=== PATIENT | female | born 1955 | race Caucasian/White ===

== ENCOUNTER 2018-10-31 16:33 | Emergency (ER) | payer MEDICAID, OTHER ==
[~2018-10-31] VITALS: Ht 154.9 cm; Wt 49.6 kg
[~2018-10-31 16:33] MED LIST: AMIT10TA25 PO; CELE200C PO; DULO30EC PO; ELA10 PO; GABA100C PO; LEVO500T6 PO; LEVO750T2 PO; METR250T2 PO; NEBI5TAB4 PO; PHEN15TA PO; POTA10TE30 PO; TRAM50TA1 PO
[2018-10-31 16:53] VITALS: BP 145/75
--- NOTE | 2018-10-31 17:01 | NUR ---
PT AMBULATED TO LOBBY AT THIS TIME, VSS
--- NOTE | 2018-10-31 17:02 | NUR ---
PATIENT AMBULATED TO ER BED 8.
--- NOTE | 2018-10-31 17:10 | NUR ---
63 Y FEMALE BIB SELF C/O LT LEG PAIN X2 DAYS. PT STATES FALLING DOWN A FLIGHT OF STAIR 2-3 YEARS AGO AND HAS HAD CHRONIC LEG PAIN, BUT PT STATES PAIN HAS BECOME WORSE OVER PAST 2 DAYS. PT REPORTS CONSTANT SHARP LEG PAIN FROM LT HEAL UP TO LT KNEE AT 9/10 THAT INCREASES WITH WALKING. -DEFORMITY, -ECCYMOSIS, -REDNESS, +CMS. VSS AT THIS TIME. AA0X4. BED IS DOWN, LOCKED, BED RAIL X 1, ERMD TO SEE PT. MEDHX:SIEZURE, HTN, HYPOKALEMIA RX:PHENOBARBITOL, POTASSIUM
--- NOTE | 2018-10-31 17:18 | NUR ---
DR BRANHAM AT BEDSIDE
[2018-10-31] MEDS ORDERED: KETOROLAC 30 MG/ML VIAL IM ONE (17:25)
[2018-10-31] MEDS ORDERED: HYDROcodone/APAP 5/325 MG 1 TAB TAB PO ONE (18:35)
[2018-10-31 18:58] VITALS: BP 138/75
--- NOTE | 2018-10-31 18:58 | NUR ---
Patient discharged with v/s stable. Written and verbal after care instructions given and explained. Patient alert, oriented and verbalized understanding of instructions. Ambulatory with steady gait. All questions addressed prior to discharge. ID band removed. Patient advised to follow up with PMD. Rx of ACETAMINOPHEN/CODEINE given. Patient educated on indication of medication including possible reaction and side effects. Opportunity to ask questions provided and answered. PT CALLED [facility] FROM [facility] AND WAITING TO BE PICKED UP
== END 2018-10-31 18:58 | disposition home or self-care (01) ==
LOC: MED 16:33
DX: M79.605 Pain in left leg (principal); G89.29 Other chronic pain; J45.909 Unspecified asthma, uncomplicated; K21.9 Gastro-esophageal reflux disease without esophagitis; I10 Essential (primary) hypertension; E07.9 Disorder of thyroid, unspecified; Z79.891 Long term (current) use of opiate analgesic; Z79.2 Long term (current) use of antibiotics; Z79.899 Other long term (current) drug therapy; Z88.6 Allergy status to analgesic agent; Z88.0 Allergy status to penicillin; Z88.5 Allergy status to narcotic agent; Z88.8 Allergy status to other drugs, medicaments and biological substances
CPT/HCPCS: 96372; 99283; J1885

== ENCOUNTER 2019-02-28 19:54 | Emergency (ER) | payer OTHER ==
[~2019-02-28] VITALS: Ht 167.6 cm; Wt 55.8 kg
[2019-02-28 20:18] VITALS: BP 148/78
[2019-02-28 21:21] LABS: BASOPHILS % (AUTO) 0.7 % (0.0-2.0); EOSINOPHILS # (AUTO) 0.2 K/uL (0-0.4); EOSINOPHILS % (AUTO) 2.6 % (0.0-4.0); HEMATOCRIT 31.8 % (36-48); HEMOGLOBIN 10.7 g/dL (12.0-16.0); LYMPHOCYTES # (AUTO) 1.4 K/uL (2.5-16.5); LYMPHOCYTES % (AUTO) 23.4 % (20.5-51.1); MEAN CORPUSCULAR HEMOGLOBIN 31 pg (27-31); MEAN CORPUSCULAR HGB CONC 34 g/dL (33-37); MEAN CORPUSCULAR VOLUME 92.7 fL (80-94); MONOCYTES # (AUTO) 0.5 K/uL (0.8-1.0); MONOCYTES % (AUTO) 7.8 % (1.7-9.3); NEUTROPHILS % (AUTO) 65.5 % (42.2-75.2); PLATELET COUNT (AUTO) 254 K/uL (140-450); RED BLOOD CELL COUNT(AUTO) 3.43 MIL/uL (4.20-5.40); WHITE BLOOD COUNT (AUTO) 6.1 K/uL (4.8-10.8)
--- NOTE | 2019-02-28 21:25 | NUR ---
Note undone in EDM - 02/28/19 at 2126 by LU 64 Y/O FEMALE C/O BILATERAL FEET SWELLING X 6 DAYS. EDEMA NOTED TO BILATERAL FEET. SEEN PCP AND WAS GIVEN WATER PILLS AND PER PT "NOT WORKING". SHE STATES THAT HER PAIN IS A 7/10 CONTINUOUS PAIN. SKIN IS MOIST. LEGS ARE EDEMATOUS AND ARE NON-PITTING BILATERALLY. ERMD MADE AWARE OF STATUS. SIDE RAILSX1 PHM; SEIZURES, HTN ALLERGIES: PCN. TYLENOL, COMPEZINE
--- NOTE | 2019-02-28 21:26 | NUR ---
64 Y/O FEMALE C/O BILATERAL FEET SWELLING X 6 DAYS. EDEMA NOTED TO BILATERAL FEET. SEEN PCP AND WAS GIVEN WATER PILLS AND PER PT "NOT WORKING". SHE STATES THAT HER PAIN IS A 7/10 CONTINUOUS PAIN. SKIN IS MOIST. LEGS AND ANKLES ARE EDEMATOUS AND ARE NON-PITTING BILATERALLY. PEDAL PULSES ARE +2. ERMD MADE AWARE OF STATUS. SIDE RAILSX1 PHM; SEIZURES, HTN ALLERGIES: PCN. TYLENOL, COMPEZINE
[2019-02-28 21:47] LABS: ANION GAP 10.5 (8-16); CARBON DIOXIDE 30.5 mmol/L (21-32); CREATININE 0.8 mg/dL (0.6-1.3)
[2019-02-28 21:52] LABS: ALBUMIN 3.6 g/dL (3.4-5.0); TOTAL BILIRUBIN 0.1 mg/dL (0.0-1.0)
--- NOTE | 2019-02-28 22:07 | NUR ---
PATIENT IS IN NO DISTRESS AND IS QUIETLY SITTING IN BED.
--- NOTE | 2019-02-28 22:08 | NUR ---
PATIENT IS SLEEPING AT THIS TIME.
--- NOTE | 2019-02-28 23:09 | NUR ---
NASRA SEVILLA AT BEDSIDE.
[2019-02-28] MEDS ORDERED: KETOROLAC 60 MG/2 ML VIAL IM ONE (23:15)
[2019-02-28 23:39] VITALS: BP 139/69
--- NOTE | 2019-02-28 23:39 | NUR ---
Patient discharged with v/s stable. Written and verbal after care instructions given and explained. Patient alert, oriented and verbalized understanding of instructions. Ambulatory with steady gait. All questions addressed prior to discharge. ID band removed. Patient advised to follow up with PMD. Rx of CIPRO, MOTRIN given. Patient educated on indication of medication including possible reaction and side effects. Opportunity to ask questions provided and answered.
== END 2019-02-28 23:39 | disposition home or self-care (01) ==
LOC: MED 19:54
DX: R60.0 Localized edema (principal); N39.0 Urinary tract infection, site not specified; J45.909 Unspecified asthma, uncomplicated; K21.9 Gastro-esophageal reflux disease without esophagitis; I10 Essential (primary) hypertension; E07.9 Disorder of thyroid, unspecified; Z90.49 Acquired absence of other specified parts of digestive tract; Z90.710 Acquired absence of both cervix and uterus; Z79.899 Other long term (current) drug therapy; Z88.0 Allergy status to penicillin; Z88.8 Allergy status to other drugs, medicaments and biological substances; Z88.6 Allergy status to analgesic agent
CPT/HCPCS: 36415; 71045; 80053; 81002; 81025; 83880; 84484; 85025; 96372; 99284; J1885

== ENCOUNTER 2020-04-18 17:19 | Emergency (ER) | payer MEDICARE, OTHER ==
[~2020-04-18] VITALS: Ht 162.6 cm; Wt 49.9 kg
[2020-04-18 17:23] VITALS: BP 157/93
--- NOTE | 2020-04-18 17:46 | NUR ---
PT BIB GRANDDAUGHTER C/O LEFT SIDED EXTREMITIES WEAKNESS, TINGLING, AND NUMBNESS SENSATIONS AND LEFT ARM/HAND PAIN 10/10 FOR ONE WEEK. STATED FALLING AND LANDING ON HER LEFT SIDE 1 MONTH AGO. PT IS AMBULATORY AND NO FACIAL DROOP OR ASYMMETRY NOTICED UPON TRIAGE. [id number]-JA-REAM-TO-FINGER TEST SLIGHT ABNORMAL ON THE LEFT HAND, LEFT HAND STRENGTH WEAKER ON GRIPPING TEST. PT HAD STROKE 10 YEARS AGO.
[2020-04-18] MEDS ORDERED: HYDROmorphone 2 MG TAB PO STA (18:05)
[2020-04-18] MEDS ORDERED: HYDROcodone/APAP 5/325 MG 1 TAB TAB PO ONE ×2 (18:05→22:40)
--- NOTE | 2020-04-18 19:02 | NUR ---
Report given to SHAHID Padilla. Transfer of care at this time
[2020-04-18 19:19] LABS: BASOPHILS % (AUTO) 0.7 % (0.0-2.0); EOSINOPHILS % (AUTO) 0.1 % (0.0-4.0); HEMATOCRIT 34.2 % (36-48); HEMOGLOBIN 11.7 g/dL (12.0-16.0); LYMPHOCYTES # (AUTO) 1.3 K/uL (2.5-16.5); LYMPHOCYTES % (AUTO) 18.5 % (20.5-51.1); MEAN CORPUSCULAR HEMOGLOBIN 31 pg (27-31); MEAN CORPUSCULAR HGB CONC 34 g/dL (33-37); MEAN CORPUSCULAR VOLUME 91.7 fL (80-94); MONOCYTES # (AUTO) 0.4 K/uL (0.8-1.0); MONOCYTES % (AUTO) 5.9 % (1.7-9.3); NEUTROPHILS # (AUTO) 5.5 K/uL (1.8-7.7); NEUTROPHILS % (AUTO) 74.8 % (42.2-75.2); PLATELET COUNT (AUTO) 247 K/uL (140-450); RED BLOOD CELL COUNT(AUTO) 3.72 MIL/uL (4.20-5.40); RED CELL DISTRIBUTION WIDTH 13.1 % (11.6-13.7); WHITE BLOOD COUNT (AUTO) 7.3 K/uL (4.8-10.8)
--- NOTE | 2020-04-18 19:22 | NUR ---
pt states still unable to provide urine.
[2020-04-18 19:28] LABS: PROTHROMBIN TIME 11.6 secs (10.8-13.4)
[2020-04-18 19:30] LABS: ANION GAP 16.9 (8-16); CARBON DIOXIDE 23.4 mmol/L (21-32); CREATININE 0.6 mg/dL (0.6-1.3); POTASSIUM 3.3 mmol/L (3.5-5.1); TOTAL BILIRUBIN 0.4 mg/dL (0.0-1.0)
--- NOTE | 2020-04-18 19:45 | NUR ---
pt being interviewed by neurologist via remote connection.
[2020-04-18] MEDS ORDERED: HYDROmorphone PFS 2 MG/ML SYR IVP ONE (20:10)
--- NOTE | 2020-04-18 20:18 | NUR ---
pt ambulated to restroom to provide urine sample.
--- NOTE | 2020-04-18 20:26 | NUR ---
CT consent signed and radiology department notified
[2020-04-18 20:39] LABS: APPEARANCE,URINE CLEAR (CLEAR); BILIRUBIN,URINE NEGATIVE (NEGATIVE); BLOOD, URINE NEGATIVE (NEGATIVE); COLOR,URINE YELLOW (YELLOW); LEUKOCYTE ESTERASE ,URINE NEGATIVE (NEGATIVE); NITRITE, URINE POSITIVE (NEGATIVE); UGLUCOSE NEGATIVE (NEGATIVE)
[2020-04-18 20:44] LABS: RBC,URINE 0-5 /HPF (0-5)
[2020-04-18] MEDS ORDERED: atenoloL 25 MG TAB PO ONE (21:05)
[2020-04-18] MEDS ORDERED: ATEN25TA7 PO (21:13)
[2020-04-18] MEDS ORDERED: KEP500 PO (21:13)
[2020-04-18] MEDS ORDERED: FAMO-90 PO (21:13)
--- NOTE | 2020-04-18 21:21 | NUR ---
Pt taken to CT via w/c.
--- NOTE | 2020-04-18 21:30 | NUR ---
pt reports 8/10 pain even after administration of medication via IV. Dr. Han notified.
--- NOTE | 2020-04-18 21:34 | NUR ---
pt returned from CT via w/c
--- NOTE | 2020-04-18 22:30 | NUR ---
splint applied by BO Wilson. Pulses palpable +2. Cap refill < 3. ROM intact.
--- NOTE | 2020-04-18 22:40 | NUR ---
pt now reports decreased pain from 8/10 to 2/10 and tolerable.
[2020-04-18 23:17] VITALS: BP 136/76
== END 2020-04-18 23:17 | disposition home or self-care (01) ==
LOC: MED 17:19
DX: S69.92XA Unspecified injury of left wrist, hand and finger(s), initial encounter (principal); R56.9 Unspecified convulsions; J45.909 Unspecified asthma, uncomplicated; K21.9 Gastro-esophageal reflux disease without esophagitis; I10 Essential (primary) hypertension; E07.9 Disorder of thyroid, unspecified; Z88.0 Allergy status to penicillin; Z88.5 Allergy status to narcotic agent; Z88.6 Allergy status to analgesic agent; Z88.8 Allergy status to other drugs, medicaments and biological substances; Z79.899 Other long term (current) drug therapy; X58.XXXA Exposure to other specified factors, initial encounter; Y93.89 Activity, other specified; Y92.89 Other specified places as the place of occurrence of the external cause; Y99.8 Other external cause status
CPT/HCPCS: 29125; 36415; 70450; 70496; 70498; 71045; 73110; 80053; 81001; 84484; 85025; 85610; 85730; 86886; 86900; 86901; 87086; 93005; 96374; 99285; J1170; Q9967

== ENCOUNTER 2020-09-19 16:14 | Emergency (ER) | payer MEDICARE, OTHER ==
[~2020-09-19] VITALS: Ht 167.6 cm; Wt 54.4 kg
[~2020-09-19 16:14] MED LIST changes: +AMIT10TA36 PO; +ATEN25TA7 PO; -ELA10 PO; +FAMO-90 PO; +KEP500 PO; +METR-520 PO; -METR250T2 PO
[2020-09-19 16:26] VITALS: BP 154/84
--- NOTE | 2020-09-19 16:31 | NUR ---
Patient ambulated to bed 8 with steady/even gait.
--- NOTE | 2020-09-19 16:35 | NUR ---
Patient ambulated to restroom for urine sample.
--- NOTE | 2020-09-19 16:46 | NUR ---
65 Y/O FEMALE BIB SELF C/O DIARHHEA X 4 DAYS WITH ABDOMINAL PAIN. INTERMITTENT RIGHT LOWER ABDOMINAL PAIN RADIATING TO RIGHT LOWER EXTREMITY. HYPERACTIVE BOWEL SOUNDS HEARD THROUGHOUT, PT STATES 6 BM TODAY. PT DENIES VOMITING/NAUSEA OR BLOOD IN STOOL. PT STATES PRESENCE OF RASH THROUGHOUT BILAT ARMS, APPARENT ANOMALIES NOTED. PT DENIES DISCOMFORT FROM SAID SKIN ANOMALIES. AO4, BREATHING EVEN AND UNLABORED, SKIN WARM AND DRY. BED IN LOWEST POSITION, LCOKED, X1 SIDERAIL UP. PMH - HTN, SEIZURES, APPENDECTOMY, HYSTERECTOMY, OVARIAN CYST ALLERGY - NSAIDs
--- NOTE | 2020-09-19 16:58 | NUR ---
ERMD AT BEDSIDE
[2020-09-19] MEDS ORDERED: NACL 0.9% 1,000 ML IV ONE (17:00)
--- NOTE | 2020-09-19 17:05 | NUR ---
BP 182/89 WITH NEW ONSET THROBBING HEADACHE. FRANKIED MADE AWARE.
[2020-09-19 17:37] LABS: APPEARANCE,URINE CLEAR (CLEAR); BILIRUBIN,URINE NEGATIVE (NEGATIVE); BLOOD, URINE TRACE-I (NEGATIVE); COLOR,URINE YELLOW (YELLOW); LEUKOCYTE ESTERASE ,URINE 2+ (NEGATIVE); NITRITE, URINE NEGATIVE (NEGATIVE); UGLUCOSE NEGATIVE (NEGATIVE)
[2020-09-19 17:51] LABS: ALBUMIN 3.9 g/dL (3.4-5.0); ANION GAP 14.8 (8-16); CARBON DIOXIDE 27.9 mmol/L (21-32); CREATININE 0.8 mg/dL (0.6-1.3); TOTAL BILIRUBIN 0.2 mg/dL (0.0-1.0)
[2020-09-19] MEDS ORDERED: MORPHINE SULFATE 4 MG/ML SYR IVP ONE (17:55)
[2020-09-19] MEDS ORDERED: ONDANSETRON 4 MG/2 ML VIAL IVP ONE (17:55)
[2020-09-19 18:04] LABS: POTASSIUM 2.7 mmol/L (3.5-5.1)
[2020-09-19] MEDS ORDERED: POTASSIUM CHLORIDE 10 MEQ TABER PO ONE (18:10)
[2020-09-19] MEDS ORDERED: LACTATED RINGERS 1,000 ML IV ONE (18:10)
[2020-09-19 18:14] LABS: BASOPHILS % (AUTO) 0.3 % (0.0-2.0); EOSINOPHILS % (AUTO) 0.4 % (0.0-4.0); HEMATOCRIT 34.9 % (36-48); HEMOGLOBIN 11.8 g/dL (12.0-16.0); LYMPHOCYTES # (AUTO) 1.6 K/uL (2.5-16.5); LYMPHOCYTES % (AUTO) 21.6 % (20.5-51.1); MEAN CORPUSCULAR HEMOGLOBIN 31 pg (27-31); MEAN CORPUSCULAR HGB CONC 34 g/dL (33-37); MEAN CORPUSCULAR VOLUME 92.3 fL (80-94); MONOCYTES # (AUTO) 0.5 K/uL (0.8-1.0); MONOCYTES % (AUTO) 7.1 % (1.7-9.3); NEUTROPHILS # (AUTO) 5.1 K/uL (1.8-7.7); NEUTROPHILS % (AUTO) 70.6 % (42.2-75.2); PLATELET COUNT (AUTO) 274 K/uL (140-450); RED BLOOD CELL COUNT(AUTO) 3.78 MIL/uL (4.20-5.40); WHITE BLOOD COUNT (AUTO) 7.3 K/uL (4.8-10.8)
--- NOTE | 2020-09-19 19:18 | NUR ---
Pt report given to SHAHID MANNING AND SHAHID JEAN-BAPTISTE. Transfer of care at this time.
--- NOTE | 2020-09-19 19:19 | NUR ---
RECEIVED REPORT FROM SHAHID GOULD FOR CONTINUITY OF CARE
[2020-09-19 19:50] LABS: RBC,URINE 0-5 /HPF (0-5)
[2020-09-19] MEDS ORDERED: KETOROLAC 30 MG/ML VIAL IVP ONE (19:50)
[2020-09-19] MEDS ORDERED: POTA20TE92 PO (20:45)
[2020-09-19] MEDS ORDERED: TRAM50TA1 PO (20:45)
[2020-09-19 21:21] VITALS: BP 154/84
--- NOTE | 2020-09-19 21:22 | NUR ---
Patient discharged with v/s stable. Written and verbal after care instructions given and explained. Patient alert, oriented and verbalized understanding of instructions. Ambulatory with steady gait. All questions addressed prior to discharge. ID band removed. Patient advised to follow up with PMD. Rx of TRAMADOL AND POTASSIUM given. Patient educated on indication of medication including possible reaction and side effects. Opportunity to ask questions provided and answered.
--- NOTE | 2020-09-21 10:08 | NUR ---
LATE ENTRY -- [place] [address]/19/20
--- NOTE | 2020-09-22 14:39 | NUR ---
LATE ENTRY---Urine culture results received from lab. Results shown to Dr. Martinez. New prescription received. New RX for Bactrim DS 1 tab po BID #20 with no refills. I attempted to call phone number on file but it is disconnected and unable to leave a voicemail. I also called patient's next of kin work phone and the phone number is incorrect. There is no way to get ahold of patient.
== END 2020-09-19 21:21 | disposition home or self-care (01) ==
LOC: MED 16:14
DX: R19.7 Diarrhea, unspecified (principal); R10.31 Right lower quadrant pain; J45.909 Unspecified asthma, uncomplicated; I11.9 Hypertensive heart disease without heart failure; K21.9 Gastro-esophageal reflux disease without esophagitis; Z88.6 Allergy status to analgesic agent; Z88.0 Allergy status to penicillin; Z88.8 Allergy status to other drugs, medicaments and biological substances; Z79.899 Other long term (current) drug therapy
CPT/HCPCS: 36415; 74176; 80053; 80184; 81001; 83690; 85025; 87086; 96361; 96374; 96375; 99284; J1885; J2270; J2405; J7120

== ENCOUNTER 2021-06-03 21:49 | Emergency (ER) | payer MEDICARE, OTHER ==
[~2021-06-03] VITALS: Ht 167.6 cm; Wt 53.6 kg
[~2021-06-03 21:49] MED LIST changes: -PHEN15TA PO; +POTA10TA70 PO; -POTA10TE30 PO; +POTA20TA49 PO; +PYRI50TA2 PO
[2021-06-03 22:11] VITALS: BP 167/75
--- NOTE | 2021-06-04 00:37 | NUR ---
pt taken to bed 04.
--- NOTE | 2021-06-04 00:45 | NUR ---
SEE COMPLETE ASSESSMENT, COVERING LUNCH FOR PRIMARY RN.
[2021-06-04] MEDS ORDERED: HYD2.5O TP (01:40)
[2021-06-04 01:45] VITALS: BP 167/75
--- NOTE | 2021-06-04 01:45 | NUR ---
Patient discharged with v/s stable. Written and verbal after care instructions given and explained. Patient alert, oriented and verbalized understanding of instructions. Ambulatory with steady gait. All questions addressed prior to discharge. ID band removed. Patient advised to follow up with PMD. Rx of hydrocortisone 2.5% given. Patient educated on indication of medication including possible reaction and side effects. Opportunity to ask questions provided and answered.
== END 2021-06-04 01:45 | disposition home or self-care (01) ==
LOC: MED 21:49
DX: L30.9 Dermatitis, unspecified (principal); J45.909 Unspecified asthma, uncomplicated; I10 Essential (primary) hypertension; K21.9 Gastro-esophageal reflux disease without esophagitis; Z90.49 Acquired absence of other specified parts of digestive tract; Z79.899 Other long term (current) drug therapy; Z88.0 Allergy status to penicillin; Z88.8 Allergy status to other drugs, medicaments and biological substances; Z90.710 Acquired absence of both cervix and uterus
CPT/HCPCS: 99282

== ENCOUNTER 2022-07-01 17:33 | Emergency (ER) | payer MEDICARE, OTHER ==
[~2022-07-01] VITALS: Ht 167.6 cm; Wt 53.1 kg
[~2022-07-01 17:33] MED LIST changes: +HYD2.5O TP; +TRAM-748 PO; -TRAM50TA1 PO
[2022-07-01 17:48] VITALS: BP 168/82
[2022-07-01] MEDS ORDERED: IBUPROFEN 600 MG TAB PO ONE (18:40)
[2022-07-01] MEDS ORDERED: ACET-6951 PO (19:31)
[2022-07-01] MEDS ORDERED: IBUP-2213 PO (19:31)
[2022-07-01] MEDS ORDERED: IBUPROFEN 600 MG TAB ONE (19:46)
--- NOTE | 2022-07-01 19:56 | NUR ---
Patient discharged with v/s stable. Written and verbal after care instructions given and explained. Patient verbalized understanding. Ambulatory with steady gait. All questions addressed prior to discharge. Advised to follow up with PMD.
== END 2022-07-01 19:56 | disposition home or self-care (01) ==
LOC: MED 17:33
DX: S93.602A Unspecified sprain of left foot, initial encounter (principal); S93.402A Sprain of unspecified ligament of left ankle, initial encounter; S83.92XA Sprain of unspecified site of left knee, initial encounter; K21.9 Gastro-esophageal reflux disease without esophagitis; I10 Essential (primary) hypertension; E07.9 Disorder of thyroid, unspecified; J45.909 Unspecified asthma, uncomplicated; Z79.899 Other long term (current) drug therapy; Z88.0 Allergy status to penicillin; Z88.1 Allergy status to other antibiotic agents; W01.0XXA Fall on same level from slipping, tripping and stumbling without subsequent striking against object, initial encounter; Y93.89 Activity, other specified; Y92.89 Other specified places as the place of occurrence of the external cause; Y99.8 Other external cause status
CPT/HCPCS: 73560; 73590; 73630; 99284

== ENCOUNTER 2023-03-20 20:10 | Emergency (ER) | payer MEDICARE, OTHER ==
[~2023-03-20] VITALS: Ht 167.6 cm; Wt 59.0 kg
[~2023-03-20 20:10] MED LIST changes: +ACET-6951 PO; -AMIT10TA36 PO; +AMIT10TA47 PO; +IBUP-2213 PO
[2023-03-20 20:52] VITALS: BP 127/84; PULSE 70; RESP 19; TEMP 97.3; O2SAT 96
[2023-03-20] MEDS ORDERED: IBUP-1842 PO (21:14)
[2023-03-20] MEDS ORDERED: ACET-11169 PO (22:09)
[2023-03-20 22:20] VITALS: BP 140/77; PULSE 62; RESP 15; O2SAT 98
== END 2023-03-20 22:20 | disposition home or self-care (01) ==
LOC: MED 20:10
DX: R06.02 Shortness of breath (principal); J45.909 Unspecified asthma, uncomplicated; K21.9 Gastro-esophageal reflux disease without esophagitis; I10 Essential (primary) hypertension; E07.9 Disorder of thyroid, unspecified; Z79.899 Other long term (current) drug therapy; Z88.0 Allergy status to penicillin; Z88.8 Allergy status to other drugs, medicaments and biological substances
CPT/HCPCS: 71046; 99283